=== PATIENT | male | born 1970 ===

== ENCOUNTER 2019-05-11 10:35 | Outpatient (CLI) | payer BC, SELFPAY ==
--- NOTE | ~2019-05-11 | CT_ITS ---
EXAMINATION: CT chest w con DATE: 05/11/2019 11:09 INDICATION: lymphadenopathy TECHNIQUE: Computed tomography (CT) of the chest was performed with 75 mL Omnipaque-350 intravenous c ontrast. Additional 3D reconstructions utilizing coronal maximum intensity projection (MIP) were perf ormed. Automated exposure control and iterative reconstruction technique were employed. The dose-ric th product was 671.00 mGy-cm. COMPARISON: None FINDINGS: Minimal dependent atelectasis in the lower lobes. No pneumonia, suspicious pulmonary nodules, pulmona ry edema or pleural effusion. Heart size is normal. No pericardial effusion. Thoracic aorta is normal in caliber with no dissection. No pathologically enlarged thoracic lymphadenopathy. No abnormal mass es or fluid collections identified in the right axilla at the marker indicating the region of concern . Diffuse hepatic steatosis. Cholecystectomy clips in the gallbladder fossa. Bones are unremarkable. IMPRESSION: 1. No abnormal masses or pathologically enlarged thoracic lymphadenopathy. Reviewed, dictated and finalized at location A.
[2019-05-11 10:54] LABS: Estimated Glomerular Filt Rate > 60
== END 2019-05-11 10:36 ==
DX: R59.1 Generalized enlarged lymph nodes (principal)
CPT/HCPCS: 36415; 71260; Q9967